=== PATIENT | male | born 1955 | race Caucasian/White ===

== ENCOUNTER 2018-11-30 21:10 | Emergency (ER) | payer OTHER ==
[~2018-11-30] VITALS: Ht 167.6 cm; Wt 81.7 kg
[~2018-11-30 21:10] MED LIST: ASPIRIN325 PO; DOCUSATE SODIU100 MG PO; EFFIENT10 MG PO; FAMOTIDINE20 MG PO; IBUPROFEN 800800 M1 PO; LOPRESSOR25 PO; NOHOMEMEDICATIONS; PRINIVIL5 MG PO; ZOCOR40 MG PO
[2018-11-30] MEDS ORDERED: CRESTOR40 MG PO (21:29)
[2018-11-30 21:50] LABS: ABSOLUTE BASOPHILS 0.1 thou/uL (0.0-0.2); ABSOLUTE EOSINOPHILS 0.2 thou/uL (0.0-0.7); ABSOLUTE LYMPHOCYTES 1.6 thou/uL (0.8-5.3); ABSOLUTE MONOCYTES 0.8 thou/uL (0.0-1.2); ABSOLUTE NEUTROPHILS 4.7 thou/uL (1.6-8.1); BASOPHILS 0.9 %; EOSINOPHILS 2.2 %; HEMATOCRIT 43.5 % (42.0-52.0); HEMOGLOBIN 15.3 gm/dL (14.0-18.0); LYMPHOCYTES 22.1 %; MCH 30.9 pg (26.0-34.0); MCHC 35.2 g/dL (28.0-37.0); MCV 87.7 fL (80.0-100.0); MONOCYTES 10.6 %; MPV 7.6 fl. (7.2-11.1); NUCLEATED RBCS 0 /100WBC; PLATELET COUNT* 195 thou/uL (150-400); POLYS 64.2 %; RBC 4.96 mil/uL (4.50-6.00); RDW-CV 13.4 % (10.5-14.5); WBC 7.3 thou/uL (4.0-11.0)
[2018-11-30 21:59] LABS: CALCIUM 8.7 mg/dL (8.5-10.1); CREATININE 1.1 mg/dL (0.6-1.3); POTASSIUM 4.1 mmol/L (3.5-5.1)
[2018-11-30 23:24] VITALS: BP 135/85
== END 2018-11-30 23:24 | disposition home or self-care (01) ==
LOC: M.ERS 21:10
PROVIDERS: Personal Emergency Response Attendant
DX: N48.30 Priapism, unspecified (principal); I10 Essential (primary) hypertension